=== PATIENT | female | born 1990 | race Caucasian/White ===

== ENCOUNTER 2017-02-04 13:43 | Emergency (ER) | payer OTHER ==
[~2017-02-04] VITALS: Ht 154.9 cm; Wt 61.2 kg
[~2017-02-04 13:43] MED LIST: FLEXERIL10 MG PO; HYDROCODONE/ACE1 TA1 PO; IMITREX50 MG PO; MOTRIN 400MG (400 MG PO; MOTRIN 600 MG600 MG PO
--- NOTE | 2017-02-04 14:25 | ED GENERAL ADULT ---
History of Present Illness General Chief Complaint: Dizziness Stated Complaint: DIZZY, SYNCOPAL EPISODE WHILE DRIVING LAST NIGHT Source: patient, family Exam Limitations: no limitations Allergies Coded Allergies: NO KNOWN ALLERGIES (04/10/14) Triage Note: STATES SHE FELL ASLEEP WHILE DRIVING YESTERDAY, WOKE UP, DROVE HOME AND SLEPT. WOKE UP FEELING DIZZY AND VOMITED. STATES HER BP WAS HIGH YESTERDAY. TODAY C/O DIZZINESS. Triage Nurses Notes Reviewed? yes Onset: Gradual Duration: day(s): (1) Timing: no prior history Injury Environment: home Severity: moderate Severity Numbers: 6 : No Patient currently breastfeeds: No HPI: Patient is a 26-year-old female with no medical history presenting to the emergency department with chief complaint of extreme fatigue, syncopal episode that happened last night while she was driving. Patient reports that she was very fatigued throughout the afternoon and was driving and passed out. Denies any symptoms. No history of similar symptoms in the past. Denies any drug use. Only takes control daily. After she passed out she pulled over and her boyfriend picked her up and brought her home. She presents extreme fatigue afterwards and slept the entire night. Patient woke up at night and had an episode of nausea and vomiting 1. She reports she felt better and went back to sleep. This morning and was being fatigued. She reports that she took ibuprofen prior to leaving the house that afternoon. She took whatever was in the bottle. Unsure what exactly she took. Last alcohol intake was 4 days ago. Denies any anxiety or depression. Denies any presyncopal symptoms prior to passing out. (MARCELLUS ARREOLA,PANCHITO) Vital Signs & Intake/Output Vital Signs & Intake/Output Vital Signs Date Time Temp Pulse Resp B/P B/P Pulse O2 O2 Flow FiO2 Mean Ox Delivery Rate 02/04 1816 73 137/90 ED Intake and Output 02/05 0000 02/04 1200 Intake Total Output Total Balance Patient 135 lb Weight Weight Reported by Patient Measurement Method Reconcile Medications Ethinyl Estradiol/Drospirenone (Gianvi 3 MG-0.02 MG Tablet) 0.02 MG-3 MG (24) TABLET 1 TAB PO DAILY BC (Reported) (IZABELA SOLIZ,KENZIE) Past History Travel History Traveled to [place] past 21 day No Medical History Any Pertinent Medical History? see below for history Neurological: NONE EENT: tonsil infections Cardiovascular: NONE Respiratory: NONE Gastrointestinal: NONE Hepatic: NONE Surgical History Surgical History: N Psychosocial History What is your primary language Cameroonian Tobacco Use: Never used ETOH Use: occasional use Family History Family History, If Any: MOTHER Hypertension FATHER Hypertension Hx Contributory? No (PANCHITO TOMLIN) Review of Systems Review of Systems Constitutional: Reports: see HPI, malaise. Comments Review of systems: See HPI, All other systems negative. Constitutional, no fever or weight loss HEENT: No visual changes no sore throat no congestion Cardiovascular: No chest pain ,palpitation , orthopnea or ankle swelling Skin, no jaundice no rashes Respiratory: No dyspnea cough sputum or hemoptysis GI: No diarrhea : No dysuria No hematuria, no urinary frequency Muscle skeletal: no back pain, no neck pain, Neurologic: No numbness no headache Psych: No increased stress anxiety or depression,. Heme/endocrine: No bruising no bleeding no polyuria or polydipsia Immunology: No splenectomy or history of AIDS, up-to-date with immunizations (PANCHITO TOMLIN) Physical Exam Physical Exam General Appearance: well developed/nourished, no apparent distress, alert, awake , comfortable Comments: Well-developed well-nourished person in no acute distress HEENT: Normal EENT exam, extraocular motion intact, no nystagmus. Pupils equally round and reactive to light and accommodation. Nose is atraumatic. External auditory canal and Tympanic membranes clear. Pharynx normal. No swelling or edema. Funduscopic: Somewhat limited secondary to no dilation. No obvious retinal detachment or hemorrhage noted. No venous nicking appreciated. Moist oromucosa, clearing secretions without difficulty. Neck: Supple, no lymphadenopathy, normal range of motion without pain or tenderness, full range of motion, negative meningeal signs. Back: Nontender, no CVA tenderness. Full range of motion Cardiovascular: Regular rate and rhythms no murmurs rubs or gallops, normal JVP Respiratory: Chest nontender. No respiratory distress.breath sounds clear to auscultation bilaterally Abdomen: Soft, nontender nondistended, no appreciable organomegaly. Normal bowel sounds. No ascites, no rebound or guarding. Extremity: No edema, no calf tenderness to palpation, normal and equal pulses. Neuro: Alert oriented x3, motor sensory normal, cranial nerves II through XII grossly intact. Cerebellar testing is unremarkable. Able to perform finger to nose testing without difficulty. Skin: No appreciable rash on exposed skin, skin is warm and dry. Psych: Mood and affect is normal, memory and judgment is normal. Core Measures ACS in differential dx? No CVA/TIA Diagnosis: No Severe Sepsis Present: No Septic Shock Present: No (MARCELLUS ARREOLA,PANCHITO) Progress Differential Diagnoses I considered the following diagnoses in my evaluation of the patient: Dehydration, electrolyte abnormality, viral syndrome, urinary tract infection, drug abuse, cardiac arrhythmia, intracranial hemorrhage, intracranial aneurysm, CVA, TIA Diagnostic Imaging: Viewed by Me: CT Scan. Discussed w/RAD: CT Scan. Radiology Impression: PATIENT: ANN MARIE JEFF PRESENT AGE: 26 PATIENT ACCOUNT NO: [id number] : 91 LOCATION: [facility] ORDERING PHYSICIAN: PANCHITO ARREOLA SERVICE DATE: 02/04/17 EXAM TYPE: CAT - CT HEAD ANGIOGRAM EXAMINATION: CT ANGIOGRAM HEAD CLINICAL INFORMATION: Rule out aneurysm. Syncope. Positive family history. COMPARISON: None. TECHNIQUE: Test bolus sequences followed by intravenous administration 95 mL of Optiray 350. Helical imaging was performed in the axial plane from the skull base to the vertex. Delayed postcontrast imaging of the head was also performed. Due to a problem with bolus tracking, imaging was repeated. The data was processed at the ambulatory technologist's workstation for generation of MIP sequences. Three-dimensional volume rendered reformatted images were also generated at an offline 3-D workstation. DLP: 2037.14 mGy-cm. FINDINGS: There is no evidence of acute intracranial hemorrhage or territorial infarction. No abnormal mass effect or midline shift is seen. Singh to white matter differentiation is well preserved. No extra-axial fluid collections are identified. There is no abnormal enhancement. The ventricles are normal in size. There is no abnormal attenuation within the brain parenchyma. The osseous structures and soft tissues are normal. The mastoid air cells are well aerated. There is mild mucosal thickening in the right ethmoid and bilateral sphenoid sinuses. Upon evaluating the right-sided temporal bone structures, there is an incidental right-sided superior semicircular canal dehiscence. The intracranial vasculature corresponding to the anterior and posterior circulation is normal. No significant stenoses or occlusions are seen. No aneurysm or vascular malformation is identified. The visualized extracranial vessels appear normal. The venous sinuses opacify normally. IMPRESSION: Normal CT angiogram of the head. No acute process. 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 DICTATED BY: TONJA PETERSON MD DATE/TIME DICTATED:02/04/171821 MASTER MECHANIC:LAWRENCE DATE/TIME TRANSCRIBED:02/04/171821 CONFIDENTIAL, DO NOT COPY WITHOUT APPROPRIATE AUTHORIZATION. <Electronically signed in Other Vendor System> SIGNED BY: TONJA PETERSON MD 02/04/171833 Initial ED EKG: NSR Prior EKG: unchanged Comments: At arrival patient is afebrile in no acute distress, neurologically intact without focal deficits. Patient is otherwise healthy, only on control. She is reporting a syncopal episode while driving yesterday with associated extreme fatigue with an episode of emesis. We will assess CBC, CMP, orthostatics, EKG, patient does have a history of brain aneurysms in the family, we will assess with CT with and without IV contrast. Patient informed of all of her results and imaging study results. Pain was better after IV hydration. Urine drug screen shows greater than 800 dentist. When confronted about this patient unsure how it got into her system. She did take ibuprofen prior to leaving the house which was prior to onset of symptoms, unsure if she took a different pill that was in ibuprofen bottle. Patient was educated on medication safety and to never take anything she didn't know exactly what it was. Patient has a ride home with mom. likely The cause of patient's symptoms. She'll follow up with the PCP. (PANCHITO TOMLIN) Plan of Care: Orders Procedure Date/time Status Add-on Test (ER Only) 02/04 1838 Active URINE DRUGS OF ABUSE 02/04 1527 Complete Departure Departure Time of Disposition: 1942 Disposition: HOME OR SELF CARE Condition: Stable Clinical Impression Primary Impression: Syncope Qualifiers: Syncope type: unspecified Qualified Code: R55 - Syncope and collapse Secondary Impressions: Benzodiazepine misuse Referrals: WESLEY SOLIZ,CARMEN Noel (PCP/Family) Additional Instructions: Follow-up with your primary care physician call to make an appointment. Increase fluids. Only take prescribed medications as directed. Use over-the- counter medications such as ibuprofen or Tylenol as directed. Return for worsening symptoms or concerns. Departure Forms: Customer Survey General Discharge Information (PANCHITO TOMLIN) PA/MANAGER STORAGE Co-Sign Statement Statement: ED Attending supervision documentation- [] I saw and evaluated the patient. I have also reviewed all the pertinent lab results and diagnostic results. I agree with the findings and the plan of care as documented in the PA's/MANAGER STORAGE's documentation. [X] I have reviewed the ED Record and agree with the PA's/MANAGER STORAGE's documentation. [] Additions or exceptions (if any) to the PAs/MANAGER STORAGE's note and plan are summarized below: [] (IZABELA SOLIZ,KENZIE) Critical Care Note Critical Care Note Critical Care Time: non-applicable (PANCHITO TOMLIN)
[2017-02-04 14:46] LABS: ABSOLUTE BASOPHIL COUNT 0 /CUMM (0.0-0.2); ABSOLUTE EOSINOPHIL COUNT 0.1 /CUMM (0.0-0.7); ABSOLUTE LYMPH COUNT 2.1 /CUMM (1.2-3.4); ABSOLUTE MONOCYTE COUNT 0.4 /CUMM (0.10-0.60); BASOPHIL % 0.2 % (0.0-2.0); EOSINOPHIL % 1.9 % (0-5); GRANULOCYTE % 65.3 % (42.2-75.2); HEMATOCRIT 38.5 % (37-47); MEAN CORPUSCULAR HGB 27.3 PG (27.0-31.0); MEAN CORPUSCULAR HGB CONC 33.7 G/DL (33.0-37.0); PLATELET COUNT 274 /CUMM (130-400); RBC DISTRIBUTION WIDTH 13.7 % (11.5-14.5); RED BLOOD CELL CT 4.75 /CUMM (4.20-5.40); WHITE BLOOD CELL COUNT 7.7 /CUMM (4.8-10.8)
[2017-02-04] MEDS ORDERED: GIANVI 3 MG-0.1 EACH PO (14:48)
[2017-02-04 18:16] VITALS: BP 137/90
--- NOTE | 2017-02-04 18:34 | CT SCAN REPORT ---
EXAMINATION: CT ANGIOGRAM HEAD CLINICAL INFORMATION: Rule out aneurysm. Syncope. Positive family history. COMPARISON: None. TECHNIQUE: Test bolus sequences followed by intravenous administration 95 mL of Optiray 350. Helical imaging was performed in the axial plane from the skull base to the vertex. Delayed postcontrast imaging of the head was also performed. Due to a problem with bolus tracking, imaging was repeated. The data was processed at the ep technologist's workstation for generation of MIP sequences. Three-dimensional volume rendered reformatted images were also generated at an offline 3-D workstation. DLP: 2037.14 mGy-cm. FINDINGS: There is no evidence of acute intracranial hemorrhage or territorial infarction. No abnormal mass effect or midline shift is seen. Singh to white matter differentiation is well preserved. No extra-axial fluid collections are identified. There is no abnormal enhancement. The ventricles are normal in size. There is no abnormal attenuation within the brain parenchyma. The osseous structures and soft tissues are normal. The mastoid air cells are well aerated. There is mild mucosal thickening in the right ethmoid and bilateral sphenoid sinuses. Upon evaluating the right-sided temporal bone structures, there is an incidental right-sided superior semicircular canal dehiscence. The intracranial vasculature corresponding to the anterior and posterior circulation is normal. No significant stenoses or occlusions are seen. No aneurysm or vascular malformation is identified. The visualized extracranial vessels appear normal. The venous sinuses opacify normally. IMPRESSION: Normal CT angiogram of the head. No acute process. 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
== END 2017-02-04 19:54 ==
LOC: ERH 13:43
PROVIDERS: Physician Assistant
DX: R55 Syncope and collapse (principal); F13.10 Sedative, hypnotic or anxiolytic abuse, uncomplicated
CPT/HCPCS: 80307; 81003; 81025; 93005; 93010; 96360; 96361